=== PATIENT | male | born 1980 | race African-American/Black ===

== ENCOUNTER 2021-03-16 15:26 | Inpatient (IN) | payer OTHER ==
[2021-03-16] MEDS ORDERED: MAGNESIUM HYDROX 2400MG/30ML ORAL SUSPENSION 30 ML CUP PO PRN (17:06)
[2021-03-16] MEDS ORDERED: MAG HYDROX/AL HYDROX/SIMETH 30 ML UNIT-DOSE CUP PO PRN (17:06)
[2021-03-16] MEDS ORDERED: NICOTINE POLACRILEX 2 MG GUM BUC PRN (17:06)
[2021-03-16] MEDS ORDERED: MAGNESIUM CITRATE 300 ML BOTTLE PO PRN (17:06)
[2021-03-16] MEDS ORDERED: BISMUTH SUBSALICYLATE 524 MG/30 ML PO PRN (17:06)
[2021-03-16] MEDS ORDERED: ACETAMINOPHEN 325 MG TABLET (FP) PO PRN ×2 (17:06)
[2021-03-16] MEDS ORDERED: ONDANSETRON *ODT* 4 MG TABLET SL PRN (17:06)
[2021-03-16] MEDS ORDERED: MENTHOL/PHENOL 1 EACH UD MM PRN (17:06)
[2021-03-17] MEDS: hydrOXYzine PAMOATE 25 MG CAPSULE (FP) PO PRN ×2 (00:36→05:49)
[2021-03-17] MEDS: THIAMINE HCL 100 MG TABLET (FP) PO SCH ×2 (00:36→22:09)
[2021-03-17] MEDS: METHOCARBAMOL 500 MG TABLET PO PRN ×3 (00:36→18:40)
[2021-03-17] MEDS: MELATONIN 5 MG TABLETS PO SCH ×2 (01:03→22:09)
[2021-03-17] MEDS ORDERED: cloNIDine HCL 0.1 MG TABLET PO ONE (07:50)
[2021-03-17 09:04] VITALS: BMI 22.0
[2021-03-17] MEDS ORDERED: methaDONE HCL 10 MG TABLET (FOR DETOX USE ONLY) PO ONE (09:43)
[2021-03-17] MEDS: PRENATAL VITAMINS W/ FOLIC ACID TABLET (FP) PO SCH (10:30)
[2021-03-17] MEDS: NICOTINE 7 MG/24 HOURS TOPICAL PATCH TD SCH (10:32)
[2021-03-17 12:31] LABS: CALCIUM 8.6 mg/dL (8.5-10.1)
[2021-03-17 12:32] LABS: ALBUMIN 3.1 g/dl (3.4-5.0); BLOOD UREA NITROGEN 16.3 mg/dL (7-18)
[2021-03-17 12:33] LABS: HEMATOCRIT 33.8 % (35.4-49); HEMOGLOBIN 10.9 GM/dL (11.7-16.9); MCH 27.6 pg (25.7-33.7); MCHC 32.2 g/dl (32.0-35.9); MEAN CELL VOLUME 85.5 fl (80-96); MEAN PLT VOLUME 8.4 fl (7.5-11.1); PLATELET COUNT 271 10^3/uL (134-434); RBC 3.95 M/mm3 (4.00-5.60); RDW 15.4 % (11.9-15.9); WHITE BLOOD COUNT 4.6 K/mm3 (4.0-10.0)
[2021-03-17 12:36] LABS: BILIRUBIN,TOTAL 0.8 mg/dL (0.2-1); TOT PROT 6.3 g/dl (6.4-8.2)
[2021-03-17 14:30] LABS: RETICULOCYTES 0.93 % (0.5-1.5)
[2021-03-17] MEDS: IBUPROFEN 400 MG TABLET (FP) PO PRN (23:11)
[2021-03-18] MEDS: cloNIDine HCL 0.1 MG TABLET PO PRN ×3 (05:31→22:51)
[2021-03-18] MEDS: METHOCARBAMOL 500 MG TABLET PO PRN ×2 (05:32→22:51)
[2021-03-18] MEDS ORDERED: methaDONE HCL 10 MG TABLET (FOR DETOX USE ONLY) ONE (08:52)
[2021-03-18] MEDS: PRENATAL VITAMINS W/ FOLIC ACID TABLET (FP) PO SCH (09:31)
[2021-03-18] MEDS: IBUPROFEN 400 MG TABLET (FP) PO PRN ×2 (09:31→22:51)
[2021-03-18] MEDS: NICOTINE 7 MG/24 HOURS TOPICAL PATCH TD SCH (09:33)
[2021-03-18] MEDS: diazePAM 5 MG TABLET PO PRN ×2 (09:33→22:53)
[2021-03-18] MEDS: POTASSIUM CHLORIDE ORAL LIQUID 20 MEQ/15 ML PO SCH ×2 (10:32→22:53)
[2021-03-18] MEDS: MELATONIN 5 MG TABLETS PO SCH (22:50)
[2021-03-18] MEDS: hydrOXYzine PAMOATE 25 MG CAPSULE (FP) PO PRN (22:51)
[2021-03-18] MEDS: THIAMINE HCL 100 MG TABLET (FP) PO SCH (22:54)
[2021-03-19] MEDS: hydrOXYzine PAMOATE 25 MG CAPSULE (FP) PO PRN (05:23)
[2021-03-19] MEDS: METHOCARBAMOL 500 MG TABLET PO PRN (05:23)
[2021-03-19] MEDS: cloNIDine HCL 0.1 MG TABLET PO PRN ×2 (05:23→09:33)
[2021-03-19] MEDS: IBUPROFEN 400 MG TABLET (FP) PO PRN (08:07)
[2021-03-19] MEDS: diazePAM 5 MG TABLET PO PRN (09:12)
[2021-03-19] MEDS: NICOTINE 7 MG/24 HOURS TOPICAL PATCH TD SCH (09:35)
[2021-03-19] MEDS: POTASSIUM CHLORIDE ORAL LIQUID 20 MEQ/15 ML PO SCH (09:38)
[2021-03-19] MEDS: PRENATAL VITAMINS W/ FOLIC ACID TABLET (FP) PO SCH (09:38)
[2021-03-19] MEDS ORDERED: methaDONE HCL 10 MG TABLET (FOR DETOX USE ONLY) PO ONE (10:00)
[2021-03-19 13:19] VITALS: BP 130/73; PULSE 64; TEMP 97.3
[2021-03-21] MEDS ORDERED: methaDONE HCL 10 MG TABLET (FOR DETOX USE ONLY) PO ONE (10:00)
== END 2021-03-19 14:00 | disposition left against medical advice (07) | DRG 770 ==
LOC: YASAS 15:26 → Y3N 22:47
PROVIDERS: ADMIT Allergy & Immunology; ATTEND Allergy & Immunology
PROC: HZ2ZZZZ Detoxification Services for Substance Abuse Treatment (ICD-10-PCS; principal; 2021-03-16)
DX: F11.23 Opioid dependence with withdrawal (principal); F14.10 Cocaine abuse, uncomplicated; F16.10 Hallucinogen abuse, uncomplicated; F12.10 Cannabis abuse, uncomplicated; F17.210 Nicotine dependence, cigarettes, uncomplicated; D64.9 Anemia, unspecified; E87.6 Hypokalemia; G47.00 Insomnia, unspecified; I10 Essential (primary) hypertension; J45.909 Unspecified asthma, uncomplicated
CPT/HCPCS: 36415; 80053; 84132; 85027; 85045; 86780; C9803; J0735; U0003; U0005

== ENCOUNTER 2021-06-24 18:11 | Inpatient (IN) | payer OTHER ==
[2021-06-24 22:36] VITALS: BMI 22.6
[2021-06-25] MEDS ORDERED: cloNIDine HCL 0.1 MG TABLET PO ONE ×3 (00:49→18:48)
[2021-06-25] MEDS ORDERED: ACETAMINOPHEN 325 MG TABLET (FP) PO PRN ×2 (00:50)
[2021-06-25] MEDS ORDERED: BENZOCAINE/MENTHOL (CHLORASEPTIC ) LOZENGE MM PRN (00:50)
[2021-06-25] MEDS ORDERED: BISMUTH SUBSALICYLATE 524 MG/30 ML PO PRN (00:50)
[2021-06-25] MEDS ORDERED: METHOCARBAMOL 500 MG TABLET PO PRN (00:50)
[2021-06-25] MEDS ORDERED: MAG HYDROX/AL HYDROX/SIMETH 30 ML UNIT-DOSE CUP PO PRN (00:50)
[2021-06-25] MEDS ORDERED: MAGNESIUM HYDROX 2400MG/30ML ORAL SUSPENSION 30 ML CUP PO PRN (00:50)
[2021-06-25] MEDS ORDERED: NICOTINE POLACRILEX 2 MG GUM BUC PRN (00:50)
[2021-06-25] MEDS ORDERED: DICYCLOMINE HCL 10 MG CAPSULE PO PRN (00:50)
[2021-06-25] MEDS ORDERED: IBUPROFEN 400 MG TABLET (FP) PO PRN (00:50)
[2021-06-25] MEDS ORDERED: LOPERAMIDE HCL 2 MG CAPSULE PO PRN (00:50)
[2021-06-25] MEDS ORDERED: ONDANSETRON *ODT* 4 MG TABLET SL PRN (00:50)
[2021-06-25] MEDS ORDERED: ALBUTEROL SO4 HFA INHALER IH PRN (00:50)
[2021-06-25] MEDS ORDERED: MAGNESIUM CITRATE 300 ML BOTTLE PO PRN (00:50)
[2021-06-25] MEDS ORDERED: cloNIDine HCL 0.1 MG TABLET ONE (07:53)
[2021-06-25] MEDS ORDERED: NICOTINE 21 MG/24 HOURS TOPICAL PATCH TD SCH (10:00)
[2021-06-25] MEDS ORDERED: PRENATAL VITAMINS W/ FOLIC ACID TABLET (FP) PO SCH (10:00)
[2021-06-25 17:12] LABS: HEMATOCRIT 35.6 % (35.4-49); HEMOGLOBIN 11.3 GM/dL (11.7-16.9); MCH 26.7 pg (25.7-33.7); MCHC 31.8 g/dl (32.0-35.9); MEAN CELL VOLUME 83.9 fl (80-96); PLATELET COUNT 374 10^3/uL (134-434); RBC 4.24 M/mm3 (4.00-5.60); RDW 15.2 % (11.9-15.9); WHITE BLOOD COUNT 7.2 K/mm3 (4.0-10.0)
[2021-06-25 17:33] LABS: ALBUMIN 3.4 g/dl (3.4-5.0); BLOOD UREA NITROGEN 8.5 mg/dL (7-18)
[2021-06-25 17:36] LABS: CREATININE 0.9 mg/dL (0.55-1.3)
[2021-06-25 17:38] LABS: BILIRUBIN,TOTAL 0.5 mg/dL (0.2-1); TOT PROT 7.5 g/dl (6.4-8.2)
[2021-06-25] MEDS ORDERED: methaDONE HCL 10 MG TABLET (FOR DETOX USE ONLY) PO ONE (18:47)
[2021-06-25] MEDS ORDERED: MECLIZINE HCL 12.5 MG TABLET PO ONE (18:49)
[2021-06-25] MEDS ORDERED: MELATONIN 5 MG TABLETS PO SCH (22:00)
[2021-06-25] MEDS ORDERED: THIAMINE HCL 100 MG TABLET (FP) PO SCH (22:00)
[2021-06-25] MEDS: cloNIDine HCL 0.1 MG TABLET PO PRN (22:50)
[2021-06-26] MEDS: cloNIDine HCL 0.1 MG TABLET PO PRN (08:05)
[2021-06-26 08:56] VITALS: BP 158/100; PULSE 68; TEMP 97.9
[2021-06-27] MEDS ORDERED: methaDONE HCL 10 MG TABLET (FOR DETOX USE ONLY) PO ONE (10:00)
[2021-06-27 10:07] LABS: SARS-CoV-2 NAA Not Detected (Not Detected)
[2021-06-29] MEDS ORDERED: methaDONE HCL 10 MG TABLET (FOR DETOX USE ONLY) PO ONE (10:00)
== END 2021-06-26 09:18 | disposition left against medical advice (07) | DRG 770 ==
LOC: YASAS 18:11 → Y3N 06-25 08:53 → UNDOADMIN 06-25 08:53
PROVIDERS: ADMIT Allergy & Immunology; ATTEND Allergy & Immunology
PROC: HZ2ZZZZ Detoxification Services for Substance Abuse Treatment (ICD-10-PCS; principal; 2021-06-25)
DX: F11.23 Opioid dependence with withdrawal (principal); F14.20 Cocaine dependence, uncomplicated; F12.20 Cannabis dependence, uncomplicated; F17.210 Nicotine dependence, cigarettes, uncomplicated; G47.00 Insomnia, unspecified; I10 Essential (primary) hypertension
CPT/HCPCS: 36415; 80053; 85027; 86780; 87811; 93005; 93010; C9803-CS; J0735; U0003; U0005

== ENCOUNTER 2021-06-25 10:16 | Emergency (ER) | payer OTHER ==
[2021-06-25 10:39] VITALS: BMI 23.0
[2021-06-25 11:25] LABS: BASO % 0.7 % (0-2.0); EOS % 1.1 % (0-4.5); HEMATOCRIT 35.9 % (35.4-49); HEMOGLOBIN 11.5 GM/dL (11.7-16.9); LYMPH % 15.6 % (8-40); MCH 26.8 pg (25.7-33.7); MCHC 31.9 g/dl (32.0-35.9); MEAN CELL VOLUME 83.9 fl (80-96); MEAN PLT VOLUME 7.6 fl (7.5-11.1); MONO % 6.8 % (3.8-10.2); NEUT % 75.8 % (42.8-82.8); PLATELET COUNT 356 10^3/uL (134-434); RBC 4.28 M/mm3 (4.00-5.60); RDW 15.4 % (11.9-15.9); WHITE BLOOD COUNT 6.7 K/mm3 (4.0-10.0)
[2021-06-25] MEDS ORDERED: amLODIPine BESYLATE 5 MG TABLET (FP) PO ONE (11:43)
[2021-06-25 11:48] LABS: CALCIUM 9.1 mg/dL (8.5-10.1)
[2021-06-25 11:49] LABS: ALBUMIN 3.1 g/dl (3.4-5.0); BLOOD UREA NITROGEN 7.7 mg/dL (7-18); MAGNESIUM 2.2 mg/dL (1.8-2.4)
[2021-06-25] MEDS ORDERED: SODIUM CHLORIDE 0.9% 500 ML INFUS.BAG IV ONE (11:51)
[2021-06-25] MEDS ORDERED: ONDANSETRON 4 MG/2 ML VIAL IVPUSH ONE (11:51)
[2021-06-25] MEDS ORDERED: ACETAMINOPHEN 1000 MG/100 ML BAG IVPB ONE (11:51)
[2021-06-25 11:52] LABS: CREATININE 0.9 mg/dL (0.55-1.3); PHOSPHOROUS 1.5 mg/dL (2.5-4.9)
[2021-06-25 11:53] LABS: BILIRUBIN,TOTAL 0.3 mg/dL (0.2-1); TOT PROT 7.4 g/dl (6.4-8.2)
[2021-06-25] MEDS ORDERED: NAPH,MB-DB/K PH,MBDB POWDER PACKET PO ONE (12:03)
[2021-06-25] MEDS ORDERED: amLODIPine BESYLATE 5 MG TABLET (FP) ONE (12:07)
[2021-06-25] MEDS ORDERED: NAPH,MB-DB/K PH,MBDB POWDER PACKET ONE (12:07)
[2021-06-25] MEDS ORDERED: ACETAMINOPHEN INJECTION 100 ML IVPB ONE (12:07)
[2021-06-25] MEDS ORDERED: ONDANSETRON 4 MG/2 ML VIAL ONE (12:07)
[2021-06-25 14:06] VITALS: BP 176/95; PULSE 50
== END 2021-06-25 14:07 ==
LOC: JER 10:16
PROC: 3E0333Z Introduction of Anti-inflammatory into Peripheral Vein, Percutaneous Approach (ICD-10-PCS; principal; 2021-06-25)
PROC: 3E033GC Introduction of Other Therapeutic Substance into Peripheral Vein, Percutaneous Approach (ICD-10-PCS; 2021-06-25)
DX: F14.90 Cocaine use, unspecified, uncomplicated (principal); I10 Essential (primary) hypertension
CPT/HCPCS: 36415; 71045-TC-FY; 80053; 83735; 84100; 84484; 85025; 93005; 93010; 99285-25

== ENCOUNTER 2024-07-04 13:15 | Inpatient (IN) | payer OTHER ==
[2024-07-04] MEDS ORDERED: BENZOCAINE/MENTHOL (CHLORASEPTIC ) LOZENGE MM PRN (15:46)
[2024-07-04] MEDS ORDERED: ACETAMINOPHEN 325 MG TABLET (FP) PO PRN (15:46)
[2024-07-04] MEDS ORDERED: LOPERAMIDE HCL 2 MG CAPSULE PO PRN (15:46)
[2024-07-04] MEDS ORDERED: guaiFENesin 600 MG TABLET.ER (FP) PO PRN (15:46)
[2024-07-04] MEDS ORDERED: MAGNESIUM HYDROX 2400MG/30ML ORAL SUSPENSION 30 ML CUP PO PRN (15:46)
[2024-07-04] MEDS ORDERED: BENZONATATE 200 MG CAPSULE PO PRN (15:46)
[2024-07-04] MEDS ORDERED: POLYETHYLENE GLYCOL (HEALTHYLAX) 3350 17 GM PACKET PO PRN (15:46)
[2024-07-04] MEDS ORDERED: NALOXONE (NARCAN) HCL 4 MG/0.1 ML SPRAY NS PRN (15:46)
[2024-07-04] MEDS ORDERED: IBUPROFEN 400 MG TABLET (FP) PO PRN (15:46)
[2024-07-04] MEDS ORDERED: NITROGLYCERIN SUBLINGUAL 1/150 0.4 MG TAB SL PRN (15:49)
[2024-07-04] MEDS: PRENATAL VITAMINS W/ FOLIC ACID TABLET (FP) PO SCH (16:42)
[2024-07-04] MEDS: NICOTINE 7 MG/24 HOURS TOPICAL PATCH TD SCH (16:43)
[2024-07-04] MEDS: levETIRAcetam 500 MG TABLET (FP) PO SCH (21:28)
[2024-07-04] MEDS: THIAMINE 100 MG TABLET PO SCH (21:28)
[2024-07-04] MEDS: MELATONIN 5 MG TABLETS PO SCH (21:28)
[2024-07-04] MEDS: BUDESONIDE/FORMETEROL FUMARATE 80/4.5 mcg INHALER IH SCH (21:29)
[2024-07-04] MEDS: CLOTRIMAZOLE 1% CREAM TP SCH (21:29)
[2024-07-04] MEDS: TOLNAFTATE 1% CREAM 15 GM TUBE TP SCH (21:31)
[2024-07-05] MEDS: IBUPROFEN 600 MG TABLET (FP) PO PRN (00:19)
[2024-07-05] MEDS: ALBUTEROL SO4 2.5/IPRATROPIUM 0.5 INH SOL 3 ML VIAL.NEB. NEB ONE (05:30)
[2024-07-05] MEDS: hydrOXYzine PAMOATE 25 MG CAPSULE (FP) PO PRN (06:25)
[2024-07-05] MEDS: NIFEdipine E.R 60 MG TABLET PO SCH (10:26)
[2024-07-05] MEDS: SPIRONOLACTONE 25 MG TABLET PO SCH (10:26)
[2024-07-05] MEDS: NICOTINE 21 MG/24 HOURS TOPICAL PATCH TD SCH (10:27)
[2024-07-05] MEDS ORDERED: methaDONE HCL 40 MG DISPERSABLE TABLET PO ONE (11:17)
[2024-07-05] MEDS: methaDONE 40 MG, methaDONE 30 MG PO ONE (11:39)
[2024-07-05] MEDS: methaDONE HCL 40 MG DISPERSABLE TABLET PO SCH (12:12)
[2024-07-05] MEDS: QUEtiapine FUMARATE 50 MG TABLET PO SCH (23:57)
[2024-07-06] MEDS: levETIRAcetam 500 MG TABLET (FP) PO ONE (02:45)
[2024-07-06] MEDS: MAG HYDROX/AL HYDROX/SIMETH 30 ML UNIT-DOSE CUP PO PRN (07:05)
[2024-07-06] MEDS: LIDOCAINE 5% TOPICAL PATCH TP SCH (15:26)
[2024-07-06] MEDS: LIDOCAINE PATCH REMOVAL MC SCH (21:32)
[2024-07-08 09:58] LABS: URINE APPEARANCE CLEAR; URINE BILIRUBIN NEGATIVE (NEGATIVE); URINE COLOR YELLOW; URINE GLUCOSE (UA) NEGATIVE (NEGATIVE); URINE KETONE NEGATIVE (NEGATIVE); URINE LEUK ESTERASE NEGATIVE (NEGATIVE); URINE NITRITE NEGATIVE (NEGATIVE); URINE PROTEIN NEGATIVE (NEGATIVE); URINE UROBILINOGEN 0.2 mg/dL (0.2-1.0)
[2024-07-09] MEDS: METHYL SALICYLATE/MENTHOL 30 GM TUBE TP PRN (17:43)
[2024-07-11] MEDS: LISINOPRIL 10 MG TABLET PO SCH (16:40)
[2024-07-12] MEDS: LIDOCAINE 2.5%/PRILOCAINE 2.5% 30 GRAM TUBE TP SCH (21:04)
[2024-07-13 12:58] LABS: PH,URINE 5.5 (5.0-8.0); URINE BILIRUBIN NEGATIVE (NEGATIVE); URINE COLOR YELLOW; URINE GLUCOSE (UA) NEGATIVE (NEGATIVE); URINE KETONE TRACE (NEGATIVE); URINE LEUK ESTERASE NEGATIVE (NEGATIVE); URINE NITRITE NEGATIVE (NEGATIVE); URINE PROTEIN NEGATIVE (NEGATIVE); URINE UROBILINOGEN 0.2 mg/dL (0.2-1.0)
[2024-07-13 13:28] LABS: URINE APPEARANCE CLEAR
[2024-07-14] MEDS: cloNIDine HCL 0.1 MG TABLET PO PRN (15:40)
[2024-07-15] MEDS: METHOCARBAMOL 500 MG TABLET PO PRN (02:22)
[2024-07-16] MEDS ORDERED: levETIRAcetam 250 MG TABLET PO ONE (09:16)
[2024-07-17] MEDS ORDERED: ALBUTEROL SO4 HFA INHALER IH ONE (05:49)
[2024-07-17 05:51] VITALS: RESP 16
[2024-07-17 09:10] VITALS: BP 148/82; PULSE 70; TEMP 97.6
== END 2024-07-17 09:40 | disposition home or self-care (01) | DRG 772 ==
LOC: YASAS 13:15 → Y3W 13:16 → Y3NR 07-16 10:45
PROVIDERS: ADMIT Allergy & Immunology; ATTEND Psychiatry & Neurology Pain Medicine
PROC: HZ42ZZZ Group Counseling for Substance Abuse Treatment, Cognitive-Behavioral (ICD-10-PCS; principal; 2024-07-04)
DX: F11.20 Opioid dependence, uncomplicated (principal); F14.20 Cocaine dependence, uncomplicated; F12.20 Cannabis dependence, uncomplicated; F17.210 Nicotine dependence, cigarettes, uncomplicated; F19.282 Other psychoactive substance dependence with psychoactive substance-induced sleep disorder; F19.280 Other psychoactive substance dependence with psychoactive substance-induced anxiety disorder; F19.24 Other psychoactive substance dependence with psychoactive substance-induced mood disorder; G40.909 Epilepsy, unspecified, not intractable, without status epilepticus; I25.10 Atherosclerotic heart disease of native coronary artery without angina pectoris; I10 Essential (primary) hypertension; J45.30 Mild persistent asthma, uncomplicated; N50.82 Scrotal pain; R10.31 Right lower quadrant pain; S69.91XA Unspecified injury of right wrist, hand and finger(s), initial encounter; W22.8XXA Striking against or struck by other objects, initial encounter; Y92.231 Patient bathroom in hospital as the place of occurrence of the external cause
CPT/HCPCS: 0241U-QW; 36415; 74177-TC; 76870-TC; 80053; 81003; 82962; 83690; 85025; 85610; 85730; 86803; 86850; 86900; 86901; 87086; 87491; 87591; 94640; J0131; Q9967

== ENCOUNTER 2024-07-05 19:41 | Emergency (ER) | payer OTHER ==
[2024-07-05 19:51] VITALS: BP 161/96; PULSE 70; RESP 18; TEMP 98.3; BMI 20.3
[2024-07-05] MEDS: ACETAMINOPHEN 500 MG TABLET (FP) PO ONE (22:40)
[2024-07-05] MEDS ORDERED: ACETAMINOPHEN 325 MG TABLET (FP) ONE (22:49)
[2024-07-05 23:09] LABS: URINE APPEARANCE CLEAR; URINE BILIRUBIN NEGATIVE (NEGATIVE); URINE COLOR YELLOW; URINE GLUCOSE (UA) NEGATIVE (NEGATIVE); URINE KETONE NEGATIVE (NEGATIVE); URINE LEUK ESTERASE NEGATIVE (NEGATIVE); URINE NITRITE NEGATIVE (NEGATIVE); URINE PROTEIN NEGATIVE (NEGATIVE); URINE UROBILINOGEN 0.2 mg/dL (0.2-1.0)
== END 2024-07-06 01:35 | disposition home or self-care (01) ==
LOC: JER 19:41
DX: N50.82 Scrotal pain (principal); R10.31 Right lower quadrant pain
CPT/HCPCS: 76870-TC; 81003; 87086; 99284-25